=== PATIENT | male | born 1950 | race Caucasian/White ===

== ENCOUNTER 2019-11-19 12:49 | Outpatient (REF) | payer MEDICARE, MEDICAID, SELFPAY ==
[2019-11-19 21:30] LABS: Abs Immature Grans 0.06 10^3/uL (0.0-0.06); Absolute Basophil Count 0.05 10^3/uL (0.0-0.2); Absolute Lymphocyte Count 2.02 10^3/uL (1.2-3.4); Absolute Monocyte Count 0.69 10^3/uL (0.1-0.8); Absolute Neutrophil Count 6.34 10^3/uL (1.2-6.7); Basophils % 0.5; Eosinophils % 6.1; HCT 40.4 % (40.0-50.0); HGB 12.9 g/dL (13.5-17.5); Immature Grans % 0.6; Lymphocytes % 20.7; MCH 32.7 pg (27.0-33.0); MCHC 31.9 % (32.0-36.0); MCV 102.5 fL (80-95); MPV 10.1 fL (8.0-11.0); Monocytes % 7.1; Nucleated RBC 0 %; Platelet Count 333 10^3/uL (130-400); RBC 3.94 10^6/uL (4.36-5.78); RDW 13.9 % (11.8-14.1); RDW-SD 52.4 fL; WBC 9.76 10^3/uL (4.4-10.8)
[2019-11-19 22:05] LABS: Anion Gap 7.2 mmol/L (3-11); BUN 7 mg/dL (7-18); CO2 28.8 mmol/L (21.0-32.0); CREATININE 0.85 mg/dL (0.70-1.30); Calcium 8.5 mg/dL (8.5-10.1); Chloride 107 mmol/L (98-107); Glucose 98 mg/dL (74-106); Potassium 4.8 mmol/L (3.5-5.1); Sodium 143 mmol/L (136-145)
[2019-11-20 17:38] LABS: PSA, Screening 4.2 ng/mL (0.0-6.5)
== END 2019-11-19 13:09 ==
LOC: NCHCN 12:49
PROVIDERS: PCP Internal Medicine; Visit Provider Internal Medicine
DX: R30.0 Dysuria (principal); R33.9 Retention of urine, unspecified; Z51.81 Encounter for therapeutic drug level monitoring; Z12.5 Encounter for screening for malignant neoplasm of prostate
CPT/HCPCS: 80048; 84153; 85025; 87086

== ENCOUNTER 2019-12-17 14:13 | Outpatient (REF) | payer MEDICARE, MEDICAID, SELFPAY ==
[2019-12-17 22:08] LABS: Abs Immature Grans 0.01 10^3/uL (0.0-0.06); Absolute Basophil Count 0.02 10^3/uL (0.0-0.2); Absolute Eosinophil Count 0.31 10^3/uL (0.0-0.7); Absolute Lymphocyte Count 1.45 10^3/uL (1.2-3.4); Absolute Monocyte Count 0.63 10^3/uL (0.1-0.8); Absolute Neutrophil Count 4.93 10^3/uL (1.2-6.7); Basophils % 0.3; Eosinophils % 4.2; HCT 42.6 % (40.0-50.0); HGB 13.8 g/dL (13.5-17.5); Immature Grans % 0.1; Lymphocytes % 19.7; MCH 32.7 pg (27.0-33.0); MCHC 32.4 % (32.0-36.0); MCV 100.9 fL (80-95); MPV 10.8 fL (8.0-11.0); Monocytes % 8.6; Neutrophils % 67.1; Nucleated RBC 0 %; Platelet Count 212 10^3/uL (130-400); RBC 4.22 10^6/uL (4.36-5.78); RDW 14.1 % (11.8-14.1); RDW-SD 51.2 fL; WBC 7.35 10^3/uL (4.4-10.8)
[2019-12-17 22:24] LABS: Iron 164 ug/dL (65-175); Total Iron Binding Capacity 241 ug/dL (250-450); Transferrin Sat 68 % (20-55)
[2019-12-17 22:48] LABS: ALT 16 U/L (16-63); AST 16 U/L (15-37); Albumin 3.2 g/dL (3.4-5.0); Alkaline Phosphatase 84 U/L (46-116); Anion Gap 8.9 mmol/L (3-11); BUN 9 mg/dL (7-18); Bilirubin, Total 0.5 mg/dL (0.2-1.0); CO2 30.1 mmol/L (21.0-32.0); CREATININE 0.84 mg/dL (0.70-1.30); Calcium 8.8 mg/dL (8.5-10.1); Chloride 104 mmol/L (98-107); Ferritin 173 ng/mL (26-388); Glucose 104 mg/dL (74-106); Potassium 3.9 mmol/L (3.5-5.1); Sodium 143 mmol/L (136-145); Vitamin B12 568 pg/mL (193-986)
== END 2019-12-17 14:33 ==
LOC: NCHCN 14:13
PROVIDERS: PCP Internal Medicine; Visit Provider Internal Medicine
DX: D64.9 Anemia, unspecified (principal); R63.4 Abnormal weight loss; M05.79 Rheumatoid arthritis with rheumatoid factor of multiple sites without organ or systems involvement; Z79.899 Other long term (current) drug therapy
CPT/HCPCS: 80053; 82607; 82728; 83540; 83550; 85025

== ENCOUNTER 2021-06-30 16:03 | Outpatient (REF) | payer MEDICARE, MEDICAID, SELFPAY ==
[2021-06-30 17:18] LABS: Abs Immature Grans 0.01 10^3/uL (0.0-0.06); Absolute Basophil Count 0.01 10^3/uL (0.0-0.2); Absolute Eosinophil Count 0.02 10^3/uL (0.0-0.7); Absolute Lymphocyte Count 1.32 10^3/uL (1.2-3.4); Absolute Monocyte Count 0.38 10^3/uL (0.1-0.8); Absolute Neutrophil Count 0.86 10^3/uL (1.2-6.7); Basophils % 0.4; Eosinophils % 0.8; HCT 22.1 % (40.0-50.0); HGB 7.4 g/dL (13.5-17.5); Immature Grans % 0.4; Lymphocytes % 50.8; MCH 33.3 pg (27.0-33.0); MCHC 33.5 % (32.0-36.0); MCV 99.5 fL (80-95); MPV 11.4 fL (8.0-11.0); Monocytes % 14.6; Nucleated RBC 4.2 % (0.0-0.3); RBC 2.22 10^6/uL (4.36-5.78); RDW-SD 46.8 fL
[2021-06-30 19:09] LABS: Diff Comment PLT Morph Reviewed
[2021-07-02 06:01] LABS: Vitamin D 25 Total 36.1 ng/mL (30-100)
== END 2021-06-30 16:04 | disposition home or self-care (01) ==
LOC: NCHCN 16:03
PROVIDERS: PCP Internal Medicine; Visit Provider Internal Medicine
DX: M85.80 Other specified disorders of bone density and structure, unspecified site (principal); D61.818 Other pancytopenia
CPT/HCPCS: 82306; 85025